=== PATIENT | female | born 1950 | race Caucasian/White ===

== ENCOUNTER 2023-05-25 15:58 | Outpatient (RCR) | payer OTHER, SELFPAY | END 2023-05-25 23:59 | disposition home or self-care (01) | LOC: RPT 15:58 | PROVIDERS: ATTENDING PHYSICIAN Specialist; PRIMARYCARE PHYSICIAN Hospitalist | DX: M17.11 Unilateral primary osteoarthritis, right knee (principal); R26.2 Difficulty in walking, not elsewhere classified; Z73.6 Limitation of activities due to disability; M25.561 Pain in right knee | CPT/HCPCS: 97110; 97140; 97162; 97530 ==

== ENCOUNTER 2023-06-13 16:16 | Outpatient (RCR) | payer OTHER, SELFPAY | END 2023-06-14 07:57 | disposition home or self-care (01) | LOC: RPT 16:16 | PROVIDERS: ATTENDING PHYSICIAN Specialist; PRIMARYCARE PHYSICIAN Hospitalist | DX: M17.11 Unilateral primary osteoarthritis, right knee (principal); M25.561 Pain in right knee; R26.2 Difficulty in walking, not elsewhere classified | CPT/HCPCS: 97110; 97116; 97530 ==

== ENCOUNTER 2023-08-25 17:51 | Observation (INO) | payer OTHER, SELFPAY ==
[2023-08-25] VITALS (8 sets, daily range): BP systolic 117–180; BP diastolic 66–131; BMI 22.4; BMI 22.0
--- NOTE | 2023-08-25 16:10 | ED.GENMED ---
History of Present Illness
General
Chief Complaint: Visual Problem
Source: patient
Exam Limitations: none
Time Seen by Provider: 08/25/23 15:59
Nursing documentation reviewed up to this point in time: agreed with
Travel History
Have you had any contact with someone who has COVID-19?: No
Do you have any symptoms of coronavirus? Fever > 100 degrees, chills, cough, shortness of breath, sore throat, loss of taste or smell, muscle aches, or headache?: No
History of Present Illness
History of Present Illness:
73-year-old female with past medical history of GERD, hypertension who presents to the emergency department sent from ophthalmology due to diplopia; apparently found to have a 6th cranial nerve palsy. Patient reports that yesterday evening she had
an episode of double vision that lasted for short period of time and ultimately resolved and when she woke up this morning she was normal. She says that she was doing her errands this morning at around 12:30 PM she had blurry vision return and it
was more severe to the point that she felt uncomfortable driving. She says this has been persistent since then. She went to see Dr. Holguin in the office for evaluation and there was found to have a 6th cranial nerve palsy on examination. She was
sent over to the emergency room for evaluation of possible stroke. Aside from she she denies any other symptoms that she denies any speech issues, weakness or numbness in her extremities, dizziness. She denies any headache. She denies similar
symptoms in the past. She is not on blood thinners.
Past History
Past History
ED Past Medical History: Cancer and GERD
ED Past Surgical History: Gynecological
Social History
Personal:
Living: with family
Employment: Employed
Review of Systems
Review of Systems
All Other Systems: ROS reviewed and negative except as documented in HPI and ROS
Constitutional: Denies fever or chills
EENT: Reports other (Blurry vision/double vision)
Respiratory: Denies cough or trouble breathing
Cardiac: Denies chest pain or palpitations
ABD/GI: Denies abdominal pain, nausea or vomiting
: Denies flank pain
Musculoskeletal: Denies neck pain or back pain
Neurological: Denies dizzy, headache, weakness or numbness
Phy Exam
Physical Exam
Physical Exam:
General: Awake, alert, oriented x3; no acute distress
Head: Normocephalic, atraumatic
Eyes: Conjunctiva normal
Throat: Airway intact, handling secretions
Neck: Trachea midline, supple without meningismus
Lungs: Breathing comfortably no distress
Heart: Regular rate and rhythm, no murmurs, gallops, or rubs
Neuro: 6th cranial nerve palsy on the right; cranial nerves otherwise intact; no limb ataxia; motor and sensory function intact and symmetric upper and lower extremities; no limb ataxia; speech is fluent with no dysarthria or aphasia
Skin: no rash
Extremities: No edema in extremities, equal pulses in all extremities
Scores
NIH Stroke Score
Level of Consciousness: 0 - Alert
LOC Questions: 0-Answers both correctly
LOC Commands: 0-Performs both correctly
Best Horizontal Gaze: 1-Partial gaze palsy
Visual Sheikh: 0=Normal, no visual loss
Facial Palsy: 0=Normal, symmetrical
Motor - Right Arm: 0=No drift 10 seconds
Motor - Left Arm: 0=No drift 10 seconds
Motor - Right Le-No drift 5 seconds
Motor - Left Le-No drift 5 seconds
Limb Ataxia: 0-Absent
Sensation: 0-Normal
Best Language: 0-No aphasia
Dysarthria: 0-Normal
Extinction and Inattention: 0-No abnormality
Total Score:: 1
Heart Failure Risk
Heart Failure Risk Score: Not Applicable
Heart Score for Chest Pain Patients
STEMI patient?: Not applicable
Withdrawal Assessment of Alcohol
Withdrawal Assessment Completed?: Not applicable
Course
Orders/Labs/Results
Orders:
Orders
08/25/23 15:45
CBC/With Diff [Complete Blood Count/With Diff] Urgent
Comprehensive Metabolic Panel Urgent
08/25/23 16:02
Electrocardiogram (*1) Urgent
Reason for Study: Chest Pain
EKG- Treatment ONCE
08/25/23 16:05
CT Head & Neck Angio W/wo IV Urgent
Comment:
Reason For Exam: 6th nerve palsy; double vision
CT Head W/o Iv Contrast Urgent
Comment:
Reason For Exam: 6th nerve palsy; double vision
08/25/23 16:07
NEUROLOGY CONSULT Urgent
Consulting Provider: Kate Godinez
Was physician already notified: Yes
Reason for consult: CVA alert
08/25/23 16:29
PTT Urgent
Prothrombin Time Urgent
08/25/23 16:53
Aspirin Chewable [Low Strength Aspirin] 81 mg PO NOW STA
Lorazepam [Ativan] 0.5 mg PO NOW STA
Abnormal Lab Results
08/25/23
15:45
MPV 10.6 H fL
(7.4-10.4)
BUN 29 H mg/dl
(7-17)
Glucose 122 H mg/dl
(70-99)
08/25/23 15:45
08/25/23 15:45
Vital Signs
Initial and Last Documented VS:
Initial Vital Signs
Temp Pulse Resp BP Pulse Ox
36.7 C 56 20 174/86 98
08/25/23 15:32 08/25/23 15:32 08/25/23 15:32 08/25/23 15:32 08/25/23 15:32
Last Documented Vital Signs
Temp Pulse Resp BP Pulse Ox
36.7 C 51 18 180/96 96
08/25/23 15:32 08/25/23 16:30 08/25/23 16:30 08/25/23 16:30 08/25/23 16:30
MDM/Problems Addressed
Differential Diagnosis Includes:
CVA, mass, aneurysm, peripheral nerve palsy
MDM/Problems Addressed:
73-year-old female presents for evaluation of double vision�had an episode last night that resolved by the time she woke up this morning; symptoms returned again around 12:30 PM and has been constant since then. She was seen by plastic press molder
found to have a right 6th cranial nerve palsy and was referred to the emergency room. Stroke alert called on arrival. She is hypertensive but has otherwise normal vitals. Physical exam as above. NIH stroke scale 1. Plan to send for CT of the
head, CTA head and neck; usual labs sent off. Case discussed with neurology.
CT head negative. Per discussion with neurology patient not a tPA candidate given intermittent symptoms and low NIH stroke scale. Per neurology lower suspicion for stroke but plan for admission for MRI to rule this out as well as to evaluate for
any mass. Reviewed labs CBC and CMP unremarkable. Patient very anxious will treat with some Ativan. Per neurology will give low-dose aspirin. Discussed with hospitalist for admission.
Chronic conditions affecting care:
Hypertension�higher risk for stroke
Acute Exacerbation and/or Progression of Chronic Illness:
Acutely hypertensive�permissive hypertension in the setting of possible stroke
Acute Exacerbation and/or Progression of Chronic Illness: HTN
*Radiology
Radiology exam reviewed: radiology read reviewed
*Pulse Oximetry
Patient hypoxic: no
*EKG
Interpreted by ED Provider?: Yes
Heart Rate: 52
Rate: bradycardiac
Rhythm: sinus
[place]: normal axis
Interval: normal interval
QRS Pattern: normal QRS
Ischemia: other (Septal infarct age undetermined)
*Critical Care Note
Total Time (30-74mins, 75-104mins- exclusive of procedures): 30
comment:
Critical care statement: A total of 30 minutes of critical care time was provided for this patient. This includes management of unstable vital signs, evaluation of the patient at bedside, frequent reassessment, discussion with
consultants/hospitalist, and review of pertinent medical records. This time was separate from time utilized to perform any aforementioned documented procedures
Data Reviewed
Source: patient, records and physician (Reviewed notes from ophthalmology)
Patient Management
Discussion with other providers: Web Marketing Strategist (Discussed with neurology)
ED Attending Note
-
Portions of this chart may have been created with voice recognition software.� Occasional wrong word or��sound alike� substitutions may have occurred due to the inherent limitations of voice recognition software.
Discharge Plan
Departure
Patient Disposition: Admit
Date of Disposition: 08/25/23
Time of Disposition: 16:54
Admit to doctor: Elizabeth
Presentation/result/management discussed w/ accepting MD/DO: Hospitalist
Discharge Problem:
Abducens (sixth) nerve palsy
Prescriptions:
No Action
multivitamin Tablet
1 tab PO DAILY Qty: 0
citalopram [Celexa] 20 mg Tablet
20 mg PO DAILY Qty: 0
dexlansoprazole [Dexilant] 30 mg Capsule,Biphase Delayed Releas
30 mg PO DAILY Qty: 0
zinc acetate 50 mg (zinc) Capsule
50 mg PO DAILY Qty: 0
cyanocobalamin (vitamin B-12) [Vitamin B-12] 1,000 mcg Tablet
1,000 mcg PO DAILY Qty: 0
calcium carbonate [Calcium 500] 500 mg calcium (1,250 mg) Tablet
500 mg PO DAILY Qty: 0
magnesium 200 mg Tablet
200 mg PO DAILY Qty: 0
losartan 50 mg tablet
50 mg PO DAILY
buspirone 5 mg tablet
5 mg PO DAILY
atorvastatin 10 mg tablet
10 mg PO DAILY
Referrals:
Kaleigh Posadas MD [Family Provider] -
Interventions
Interventions:
*Risk Screen - Suicide Last Done: 08/25/23 15:48
*General Assessment Last Done: 08/25/23 15:48
*Neglect/Abuse Screening Last Done: 08/25/23 15:48
*ED COVID-19 Vaccine History Last Done: 08/25/23 15:48
ED- Neurological Assessment Last Done: 08/25/23 16:04
ED-EENT Assessment Last Done: 08/25/23 15:50
[2023-08-25 16:18] LABS: % Eosinophils 4.1 % (0-6); % Immature Granulocytes 0.1 % (0-0.5); % Lymphocytes 31.2 % (20.5-51.1); % Monocytes 4.8 % (1.7-9.3); % Neutrophils 58.8 % (42.2-75.2); Absolute Basophils 0.1 10^3/uL (0-0.2); Absolute Eosinophils 0.3 10^3/uL (0-0.7); Absolute Lymphocytes 2.1 10^3/uL (1.2-3.4); Absolute Monocytes 0.3 10^3/uL (0.1-0.6); Hematocrit 38.7 % (37.0-47.0); Hemoglobin 13.1 g/dL (12.0-16.0); Mean Corp Hgb Conc. 33.9 g/dL (33.0-37.0); Mean Corpuscular Hgb 28.3 pg (27.0-31.0); Mean Corpuscular Volume 83.6 fL (81.0-99.0); Mean Platelet Volume 10.6 fL (7.4-10.4); Nucleated Red Blood Cells % 0 %; Platelet Count 301 10^3/uL (130-400); Red Blood Cell Count 4.63 10^6/uL (4.20-5.40); White Blood Cell Count 6.9 10^3/uL (4.8-10.8)
[2023-08-25 16:31] LABS: ALT (SGPT) 26 U/L (0-35); AST (SGOT) 35 U/L (14-36); Albumin 4.7 g/dl (3.5-5.0); Alkaline Phosphatase 96 U/L (38-126); Blood Urea Nitrogen 29 mg/dl (7-17); Calcium 9.9 mg/dl (8.4-10.2); Carbon Dioxide 29 mmol/L (22-30); Chloride 103 mmol/L (98-107); Estimated Creatinine Clearance 48 ml/min; Glucose 122 mg/dl (70-99); Potassium 4.3 mmol/L (3.5-5.1); Sodium 138 mmol/L (135-145); Total Bilirubin 0.6 mg/dl (0.2-1.3); Total Protein 7.6 g/dl (6.3-8.2); eGFR > 60.00
[2023-08-25 16:49] LABS: INR 1.09; PT 13.9 Sec (11.4-14.6)
[2023-08-25 16:50] LABS: APTT 30.6 Sec (23.4-35.0)
--- NOTE | 2023-08-25 17:00 | HPS.HSE ---
Family Physician
-
Family Physician: Kaleigh Posadas MD
Chief Complaint
-
double vision
History of Present Illness
Ms. Esther Syed is a 73 yo woman with hx GERD, HTN who presents to the ER from ophthalmology for diplopia found to have a 6th cranial nerve palsy. She had double vision yesterday evening that resolved then returned this afternoon . She saw
Alicia in clinic who diagnosed a cranial 6th nerve palsy and sent her to the ER for further evaluation.
Patient denies headache. No recent fevers/chills. No weakness in arms or legs. No numbness or tingling. No abdominal pain. No nausea/vomiting. She did not take her BP medications this morning.
Medical History
Past Medical History
Past Medical History: Reports Other (GERD, HTN)
Past Surgical History: Reports Gynocological
Social History
Tobacco: Non-smoker
Personal:
Family History
Family History: Not pertinent
Allergies / Home Medications
Allergies reflects when Allergies were last updated in [employer].
Home Medications with original date entered in [employer]
Allergy/Medication List:
Allergies
Allergy/AdvReac Type Severity Reaction Status Date / Time
No Known Allergies Allergy Verified 08/25/23 15:42
Home Medications
citalopram 20 mg tablet (Celexa) 20 mg PO DAILY ##0 11/28/10
dexlansoprazole 30 mg capsule,biphase delayed release (Dexilant) 30 mg PO DAILY ##0 11/28/10
multivitamin 1 tab PO DAILY ##0 11/28/10
calcium carbonate 500 mg calcium (1,250 mg) tablet 500 mg PO DAILY ##0 09/17/13
cyanocobalamin (vitamin B-12) 1,000 mcg tablet (Vitamin B-12) 1,000 mcg PO DAILY ##0 09/17/13
magnesium 200 mg tablet 200 mg PO DAILY ##0 09/17/13
zinc acetate 50 mg (zinc) capsule 50 mg PO DAILY ##0 09/17/13
atorvastatin 10 mg tablet 10 mg PO DAILY 08/25/23
buspirone 5 mg tablet 5 mg PO DAILY 08/25/23
losartan 50 mg tablet 50 mg PO DAILY 08/25/23
Review of Systems
-
History Source: Patient
A 12 point ROS was completed and negative except as noted: Yes
Physical Exam
Vital Signs
Vital Signs
Temp Pulse Resp BP Pulse Ox
98.0 F 51 18 180/96 96
08/25/23 15:32 08/25/23 16:30 08/25/23 16:30 08/25/23 16:30 08/25/23 16:30
Physical Exam
General: No Apparent Distress
HEENT: PERRLA
Respiratory: Clear; No Wheezes
Cardiac: S1/S2 and Regular Rhythm
GI: Soft and Non Tender
Skin: Warm and Dry; No Rash
Neuro: AO x 3 and Other (pupils dilated; 6th CN palsy on right)
Psych: Calm
Laboratory Results
-
08/25/23 15:45
08/25/23 15:45
Laboratory Results
PT 13.9 Sec (11.4-14.6) 08/25/23 16:29
INR 1.09 08/25/23 16:29
APTT 30.6 Sec (23.4-35.0) 08/25/23 16:29
Total Bilirubin 0.6 mg/dl (0.2-1.3) 08/25/23 15:45
AST 35 U/L (14-36) 08/25/23 15:45
ALT 26 U/L (0-35) 08/25/23 15:45
Alkaline Phosphatase 96 U/L (38-126) 08/25/23 15:45
Data Reviewed
-
Diagnostic Radiology: Report Reviewed by me
Lab Data: Labs Reviewed by me
Impression/Plan
-
Ms. Esther Syed is a 73 yo woman with hx GERD, HTN who presents to the ER from ophthalmology for diplopia found to have a 6th cranial nerve palsy. She had double vision yesterday evening that resolved then returned this afternoon . She saw .
Alicia in clinic who diagnosed a cranial 6th nerve palsy and sent her to the ER for further evaluation.
Triage VS: T 36.7, P 56, RR 20, BP 174/86, SpO2 98%
LABS: WBC 6.9, Hg 13.1, PLT 301, Na 138, K+ 4.3, Cl 103, BUN 29, Cr 0.8, Glucose [address]
IMPRESSION:
No evidence of acute intracranial abnormality.
HEAD CTA
IMPRESSION: No significant narrowing of the carotid bulbs or proximal internal carotid arteries bilaterally.
There is no evidence for intracranial large vessel occlusion or significant stenosis.
Slightly larger caliber of the left vertebral artery when compared to the right. There is no evidence for significant narrowing or dissection involving the vertebral basilar system.
No CT angiographic evidence for intracranial aneurysm.
MAR: aspirin and ativan
Diplopia
6th Nerve Palsy
-admit to observation, telemetry
-aspirin given in ER, continue daily
-CT/CTA results above
-appreciate neuro consult
-MRI ordered
-PT/OT
-swallow eval
GERD
-SECURITY DIRECTOR PPI
HTN
-did not take losartan today - give now - continue daily
Anxiety
-SECURITY DIRECTOR Buspirone
-ativan pre-MRI
DVT PPx SCD
FULL CODE
[2023-08-25] MEDS: LOW STRENGTH ASPIRIN 81 MG PO (17:21)
[2023-08-25] MEDS: ATIVAN 0.5 MG PO (17:21)
--- NOTE | 2023-08-25 17:36 | CON.NEURO ---
Consultation
Order
Date of Consultation: 08/25/23
Reason for Consult: stroke alert
Called in 16:48
CC: double vision
HPI: This is a 73-year-old woman who presented to [facility] on August 25, 2023 with diplopia. According to the patient she developed intermittent painless binocular vertical diplopia worse with right lateral gaze that started on 08/23
2023 around 11 PM. No reports of head trauma, dysphagia, dysarthria, motor or sensory deficits
ER VS:174/86-180/96, 56, afebrile.
PDMP:Hydromorphone 2 Mg 20 tabs filled in on 07/27/2023, 07/21/2023, Clonazepam 0.5 mg 60 tabs filled in on 04/24/2023 , 10/25/2022
Labs:gluc 122, normal Na,
CTA head-no aneurysm
CT head-no acute abnormalities.
EKG: sinus bradycardia, �QTc Int : 453 ms.
PMH: Breast cancer, HTN, DLP, ALFONZO, OA, GERD
PSH: bilateral cataract surgery, left lumpectomy, left elbow replacement, RCR repair,
SH: ; former smoker
FH: Colon cancer
All: Sulfa, atenolol,
ROS:
Constitutional: Negative. Negative for chills, fever and unexpected weight change.
HENT: Negative for ear pain, hearing loss, tinnitus and trouble swallowing.
Eyes: Positive for diplopia
Respiratory: Negative for cough, choking and shortness of breath.
Cardiovascular: Negative for chest pain, palpitations and leg swelling.
Gastrointestinal: Negative for abdominal pain and vomiting.
Endocrine: Negative. Negative for cold intolerance.
Genitourinary: Negative for dysuria, flank pain and urgency.
Musculoskeletal: Negative for back pain, gait problem, neck pain and neck stiffness.
Skin: Negative for rash.
Allergic/Immunologic: Negative. Negative for immunocompromised state.
Neurological: Negative for dizziness, tremors, seizures, speech difficulty, numbness and headaches.
Psychiatric/Behavioral: Positive for anxiety
General: Well developed. In no acute distress.
Cardio: Regular rate and rhythm without murmur. Extremities are without cyanosis or edema.
Neuro:
Mental Status: Alert, oriented to person, place, and date. Normal attention and recall. Good fund of knowledge. Follows complex requests across the midline. Comprehension, naming, and repetition intact. Anxious
Cranial Nerves: OS/OD 5mm, nonreactive(s/p dilatation) EOMs full. Visual gaines full to confrontation. No ptosis. No nystagmus. V1-V3 intact to light touch and pinprick bilaterally, symmetric. Face symmetric. Normal hearing AU. The palate
elevated well. SCMs and traps 5/5. Tongue midline. No dysarthria.
Motor: Normal bulk and tone. No pronator or arm drift. Strength 5/5 throughout. No clonus.
Sensory: Normal pinprick, vibration and JPS.
Coordination: No dysmetria or tremor.
Gait: deferred
Assessment and Plan:
I. Acute R CN palsy. Likely etiology-microvascular infarct.
II. HTN
III. History of breast CA
-Strict BP control
-LDL, ua tox
-Brain MRI wo alfonzo
-ASA 81 mg QD
I personally reviewed all radiology and labs along with past medical records pertinent to current medical problems. Total time spent in patient care is 60 minutes.
Thank you for allowing us to participate in the care of this patient. We will continue to follow. Please do not hesitate to contact us with any questions or concerns.
Subjective/Objective
Subjective Data
Date of Service: August 25, 2023
Objective Data
Vital Signs
Temp Pulse Resp BP Pulse Ox
36.7 C 49 16 180/96 97
08/25/23 15:32 08/25/23 17:15 08/25/23 17:15 08/25/23 16:30 08/25/23 17:15
Lab Results
08/25/23 15:45
08/25/23 15:45
PT 13.9 Sec (11.4-14.6) 08/25/23 16:29
INR 1.09 08/25/23 16:29
APTT 30.6 Sec (23.4-35.0) 08/25/23 16:29
Sodium 138 mmol/L (135-145) 08/25/23 15:45
Potassium 4.3 mmol/L (3.5-5.1) 08/25/23 15:45
BUN 29 mg/dl (7-17) H 08/25/23 15:45
Glucose 122 mg/dl (70-99) H 08/25/23 15:45
Calcium 9.9 mg/dl (8.4-10.2) 08/25/23 15:45
Patient Allergies
No Known Allergies Allergy (Verified 08/25/23 15:42)
Medications
-
Home Medications
Medication Instructions Recorded
citalopram 20 mg tablet (Celexa) 20 mg PO DAILY ##0 11/28/10
dexlansoprazole 30 mg 30 mg PO DAILY ##0 11/28/10
capsule,biphase delayed release
(Dexilant)
multivitamin 1 tab PO DAILY ##0 11/28/10
calcium carbonate 500 mg calcium 500 mg PO DAILY ##0 09/17/13
(1,250 mg) tablet
cyanocobalamin (vitamin B-12) 1,000 mcg PO DAILY ##0 09/17/13
1,000 mcg tablet (Vitamin B-12)
magnesium 200 mg tablet 200 mg PO DAILY ##0 09/17/13
zinc acetate 50 mg (zinc) capsule 50 mg PO DAILY ##0 09/17/13
atorvastatin 10 mg tablet 10 mg PO DAILY 08/25/23
buspirone 5 mg tablet 5 mg PO DAILY 08/25/23
losartan 50 mg tablet 50 mg PO DAILY 08/25/23
Vital Signs and Labs
-
Vital Signs and Labs:
Vital Signs
Temp Pulse Resp BP Pulse Ox
36.7 C 49 19 176/86 96
08/25/23 15:32 08/25/23 17:31 08/25/23 17:31 08/25/23 17:31 08/25/23 17:31
Lab Results
08/25/23 15:45
08/25/23 15:45
PT 13.9 Sec (11.4-14.6) 08/25/23 16:29
INR 1.09 08/25/23 16:29
APTT 30.6 Sec (23.4-35.0) 08/25/23 16:29
Sodium 138 mmol/L (135-145) 08/25/23 15:45
Potassium 4.3 mmol/L (3.5-5.1) 08/25/23 15:45
BUN 29 mg/dl (7-17) H 08/25/23 15:45
Glucose 122 mg/dl (70-99) H 08/25/23 15:45
Calcium 9.9 mg/dl (8.4-10.2) 08/25/23 15:45
Home Medications
-
Home Medications
citalopram 20 mg tablet (Celexa) 20 mg PO DAILY ##0 11/28/10
dexlansoprazole 30 mg capsule,biphase delayed release (Dexilant) 30 mg PO DAILY ##0 11/28/10
multivitamin 1 tab PO DAILY ##0 11/28/10
calcium carbonate 500 mg calcium (1,250 mg) tablet 500 mg PO DAILY ##0 09/17/13
cyanocobalamin (vitamin B-12) 1,000 mcg tablet (Vitamin B-12) 1,000 mcg PO DAILY ##0 04/15/14
magnesium 200 mg tablet 200 mg PO DAILY ##0 09/17/13
zinc acetate 50 mg (zinc) capsule 50 mg PO DAILY ##0 09/17/13
atorvastatin 10 mg tablet 10 mg PO DAILY 08/25/23
buspirone 5 mg tablet 5 mg PO DAILY 08/25/23
losartan 50 mg tablet 50 mg PO DAILY 08/25/23
Medications
-
Medications:
Generic Name Dose Route Start Last Admin
Trade Name Freq PRN Reason Stop Dose Admin
Losartan Potassium 50 mg 08/25/23 18:00
Losartan 50 Mg Tablet PO 09/22/23 17:59
DAILY LALA
[2023-08-25] MEDS: COZAAR 50 MG PO (18:11)
[2023-08-25 19:08] LABS: Erythrocyte Sed Rate 2 mm/hour (0-20)
[2023-08-25 19:19] LABS: HDL Cholesterol 68 mg/dl; LDL Cholesterol, Calculated 46 mg/dl; Total Cholesterol 155 mg/dl (50-199); Triglyceride 205 mg/dl (10-149); Very Low Density Lipoprotein 41 mg/dl (0-30)
[2023-08-25 19:31] LABS: C-Reactive Protein < 5.00 mg/L (0.0-10.00)
[2023-08-25 20:00] LABS: TSH Reflex To Free T4 3.41 uIU/ml (0.47-4.68)
--- NOTE | 2023-08-25 20:00 | PTCARENOTE ---
Patient admitted from ED. Patient AAO x3, on RA, in no acute distress. Tele monitor applied. Patient oriented to room and call hernández is within reach.
[2023-08-25 20:39] LABS: Amphetamines Negative (Negative); Barbiturates Negative (Negative); Benzodiazepines Negative (Negative); Buprenorphine Negative (Negative); Cocaine Negative (Negative); Marijuana Negative (Negative); Methadone Negative (Negative); Methamphetamines Negative (Negative); Opiates Negative (Negative); Phencyclidine Negative (Negative); Tricyclic Antidepressants Negative (Negative)
[2023-08-25] MEDS: MELATONIN 3 MG PO (21:33)
[2023-08-26 03:00] VITALS: BP 112/60
[2023-08-26 07:00] VITALS: BP 140/75
[2023-08-26 07:30] LABS: Hematocrit 36.8 % (37.0-47.0); Hemoglobin 12.7 g/dL (12.0-16.0); Mean Corp Hgb Conc. 34.5 g/dL (33.0-37.0); Mean Corpuscular Hgb 28.9 pg (27.0-31.0); Mean Corpuscular Volume 83.8 fL (81.0-99.0); Mean Platelet Volume 10.5 fL (7.4-10.4); Platelet Count 295 10^3/uL (130-400); Red Blood Cell Count 4.39 10^6/uL (4.20-5.40); Red Cell Dist. Width 13.2 % (11.5-14.5); White Blood Cell Count 5.8 10^3/uL (4.8-10.8)
[2023-08-26] MEDS: CELEXA 20 MG PO (07:48)
[2023-08-26] MEDS: VITAMIN B-12 1000 MCG PO (07:48)
[2023-08-26] MEDS: LIPITOR 10 MG PO (07:49)
[2023-08-26] MEDS: LOW STRENGTH ASPIRIN 81 MG PO (07:49)
[2023-08-26] MEDS: PROTONIX 40 MG PO (07:49)
[2023-08-26] MEDS: COZAAR 50 MG PO (07:49)
[2023-08-26] MEDS: BUSPAR 5 MG PO (07:49)
[2023-08-26 08:10] LABS: Blood Urea Nitrogen 30 mg/dl (7-17); Calcium 9.6 mg/dl (8.4-10.2); Carbon Dioxide 30 mmol/L (22-30); Chloride 104 mmol/L (98-107); Estimated Creatinine Clearance 55 ml/min; Glucose 93 mg/dl (70-99); HDL Cholesterol 74 mg/dl; LDL Cholesterol, Calculated 69 mg/dl; Magnesium 2.3 mg/dl (1.6-2.3); Potassium 4.9 mmol/L (3.5-5.1); Sodium 138 mmol/L (135-145); Total Cholesterol 157 mg/dl (50-199); Triglyceride 73 mg/dl (10-149); Very Low Density Lipoprotein 14 mg/dl (0-30); eGFR > 60.00
[2023-08-26 08:43] LABS: Glycohemoglobin (HgbA1c) 5.9 % (4.0-5.6)
[2023-08-26] MEDS: ATIVAN 0.5 MG PO (09:07)
--- NOTE | 2023-08-26 09:18 | PTOTSP ---
ST Acute Care Evaluation
Pt presents with mild lingual deviation to the left upon protrusion, but oropharyngeal function that is within functional limits. Pt is safe for PO of all solids and liquids. No skilled DIGITAL ASSET SPECIALIST services warranted at this time.
Recommendations:
- Continue with regular solids, thin liquids, and meds as tolerated.
- DIGITAL ASSET SPECIALIST to sign off. Please re-consult if needed.
[2023-08-26 09:40] VITALS: BP 144/79; PULSE 54; O2SAT 97
[2023-08-26 09:41] VITALS: BP 144/79; PULSE 53; O2SAT 97
--- NOTE | 2023-08-26 09:52 | PTOTSP ---
Patient is functionally at her baseline even presenting with diplopia. She is I with bed mobility, transfer, ambulation, gait, and stairs. dynamic balance is good. Spent time educating patient on safety techniques of scanning environment and
slowing pace down to ensure safety while diplopia is present. At this time, there is no skilled PT needs to address. Please reconsult if situation changes. Will sign off
--- NOTE | 2023-08-26 10:53 | CM ---
Addendum entered by Haven Pathak 08/26/23 12:35:
IMM completed.
Home no needs.
Original Note:
Patient seen bedside.
IA completed.
patient lives with spouse in a 2 story home/.
Independent prior to admission.
Patient does drive.
Patient has not used assistive devices.
no hx VN.
PCP: Dr Kaleigh Posadas from [place]
Pharmacy: [facility]
[2023-08-26 11:00] VITALS: BP 147/78
--- NOTE | 2023-08-26 12:10 | W.PN.HOSP.TC ---
Today's Communication/Plan
-
F/U ESR. CRP and likely DC home today on daily asa 81
Assessment / Plan
Assessment / Plan
Ms. Esther Syed is a 73 yo woman with hx GERD, HTN who presents to the ER from ophthalmology for diplopia found to have a 6th cranial nerve palsy.� She had double vision yesterday evening that resolved then returned this afternoon . She saw
Alicia in clinic who diagnosed a cranial 6th nerve palsy and sent her to the ER for further evaluation.
HEAD CTA
IMPRESSION: No significant narrowing of the carotid bulbs or proximal internal carotid arteries bilaterally.
There is no evidence for intracranial large vessel occlusion or significant stenosis.
Slightly larger caliber of the left vertebral artery when compared to the right. There is no evidence for significant narrowing or dissection involving the vertebral basilar system.
No CT angiographic evidence for intracranial aneurysm.
MAR: aspirin and ativan
Diplopia
6th Nerve Palsy
-admitted to observation, telemetry
-aspirin given in ER, continue daily
-CT/CTA results above
-MRI results above; no acute infarct
-add on ESR/CRP
-likely OK for DC on daily aspirin; will await ESR/CRP
GERD
-TELETYPE INSTALLER PPI
HTN
-increase home losartan to 75mg daily
Anxiety
-TELETYPE INSTALLER Buspirone
-ativan pre-MRI
DVT PPx SCD
FULL CODE
Anticipated Discharge: Within 24 hours
Subjective/Interval History
-
Date of Service: August 26, 2023
possibly some improvement in double vision
no headache
no new weakness
has eye patch
Objective Data
-
Labs:
Laboratory Results
08/26/23
07:08
WBC 5.8
Hgb 12.7
Hct 36.8 L
Plt Count 295
Sodium 138
Potassium 4.9
Chloride 104
Carbon Dioxide 30
BUN 30 H
Creatinine 0.7
Glucose 93
Calcium 9.6
Vital Signs:
Vital Signs
Temp Pulse Resp BP Pulse Ox
97.7 F 50 12 147/78 95
08/26/23 11:00 08/26/23 11:00 08/26/23 11:00 08/26/23 11:00 08/26/23 11:00
Review of Systems
-
History Source: Patient
All other systems: Reviewed and negative
Physical Exam
-
General: Appears in Distress
HEENT: PERRLA and Other
Respiratory: Clear to Auscultation; Negative Wheezes
Cardiac: Regular Rhythm and S1/S2
GI: Soft and Nontender
Musculoskeletal: No Edema
Skin: Warm and Dry; Negative Rash
Neuro: AO x 3
Psych: Calm
Data Reviewed
-
Diagnostic Radiology: Report Reviewed by me
Labs: Labs Reviewed by me
--- NOTE | 2023-08-26 12:20 | W.DS.TRANS ---
DC Summary - Emergency Medicine Nurse Practitioner
-
Discharge Instructions:
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
Diet Regular
Activity As tolerated
Driving Restrictions Not until seen by your Dr
Bathing Restrictions None
Instructions:
Stand-Alone Forms:
Changes to Home Medications: Yes
Discharge Medications:
DC Medications w/original date entered in [facility]
citalopram 20 mg tablet (Celexa) 20 mg PO DAILY Mental Health/Anxiety ##0 11/28/10
dexlansoprazole 30 mg capsule,biphase delayed release (Dexilant) 30 mg PO DAILY Gastrointestinal Issue ##0 11/28/10
multivitamin 1 tab PO DAILY Supplement ##0 11/28/10
calcium carbonate 500 mg calcium (1,250 mg) tablet 500 mg PO DAILY Supplement ##0 09/17/13
cyanocobalamin (vitamin B-12) 1,000 mcg tablet (Vitamin B-12) 1,000 mcg PO DAILY Supplement ##0 09/17/13
magnesium 200 mg tablet 200 mg PO DAILY Supplement ##0 09/17/13
zinc acetate 50 mg (zinc) capsule 50 mg PO DAILY Supplement ##0 09/17/13
atorvastatin 10 mg tablet 10 mg PO DAILY High Cholesterol 08/25/23
buspirone 5 mg tablet 5 mg PO DAILY Mental Health/Anxiety 08/25/23
aspirin 81 mg chewable tablet (Children's Aspirin) 81 mg PO DAILY #30 tabs 08/26/23
losartan 50 mg tablet 75 mg PO DAILY #45 tabs 08/26/23
Home Medication Changes
Your Losartan is increased from 50mg daily to 75mg daily.
You are started on aspirin 81mg daily.
Pending Results: No
[2023-08-26 12:57] LABS: C-Reactive Protein < 5.00 mg/L (0.0-10.00)
[2023-08-26 13:05] LABS: Erythrocyte Sed Rate 8 mm/hour (0-20)
--- NOTE | 2023-08-26 14:31 | W.DCSUMMARY ---
Discharge Summary
Discharge Data
Date of Admission: 08/25/23
Date of Discharge: 08/26/23
-
Pending Results: No
Hospital Course
Discharging Physician : Dr. Tess Goodman
Disposition : Home
Primary care physician : Dr. Kaleigh Posadas
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
Hospital Course :
Ms. Esther Syed is a 73 yo woman with hx GERD, HTN who presents to the ER from ophthalmology for diplopia found to have a 6th cranial nerve palsy.� She had double vision evening prior to admission that returned following day prompting ophthalmology
visit.�Triage vitals significant for hypertension. Labs stable. CT head without acute abnormality. CTA without significant stenosis. She was started on aspirin and admitted to medicine with neurology consulting.
MRI the following morning without acute event. ESR and CRP were within normal limits. Likely microvascular etiology and she is told to continue aspirin on discharge. She will follow up with Dr. Holguin this week. She is told she can use an eye
patch for comfort and should not drive until vision normalizes; to be determined by outpatient physicians.
Time spent on discharge was 31 minutes.
Important imaging findings :
HEAD CT
IMPRESSION:
No evidence of acute intracranial abnormality.
HEAD CTA
IMPRESSION: No significant narrowing of the carotid bulbs or proximal internal carotid arteries bilaterally.
There is no evidence for intracranial large vessel occlusion or significant stenosis.
Slightly larger caliber of the left vertebral artery when compared to the right. There is no evidence for significant narrowing or dissection involving the vertebral basilar system.
No CT angiographic evidence for intracranial aneurysm.
BRAIN MRI
IMPRESSION:
There is no acute intracranial process.
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
Age-appropriate changes.
Minimal chronic sinus disease.
Procedure findings :
Discharge Plan
-
Patient Disposition: Home (Routine Discharge)
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
Diet: Regular
Activity: As tolerated
Driving Restrictions: Not until seen by your Dr
Bathing Restrictions: None
Referrals:
Kaleigh Posadas MD [Family Provider] - in less than 1 week
Ladarius Holguin MD [Active] - in less than 1 week
Additional Discharge Medication Instructions: Your Losartan is increased from 50mg daily to 75mg daily.
You are started on aspirin 81mg daily.
Please follow up with Dr. Holguin next week. Do not drive until vision improves. Wear eye patch for comfort.
Prescriptions:
New
losartan 50 mg Tablet
75 mg PO DAILY Qty: 45 0RF
aspirin [Children's Aspirin] 81 mg Tablet,Chewable
81 mg PO DAILY Qty: 30 0RF
Continued
multivitamin Tablet
1 tab PO DAILY Qty: 0
citalopram [Celexa] 20 mg Tablet
20 mg PO DAILY Qty: 0
dexlansoprazole [Dexilant] 30 mg Capsule,Biphase Delayed Releas
30 mg PO DAILY Qty: 0
zinc acetate 50 mg (zinc) Capsule
50 mg PO DAILY Qty: 0
cyanocobalamin (vitamin B-12) [Vitamin B-12] 1,000 mcg Tablet
1,000 mcg PO DAILY Qty: 0
calcium carbonate 500 mg calcium (1,250 mg) Tablet
500 mg PO DAILY Qty: 0
magnesium 200 mg Tablet
200 mg PO DAILY Qty: 0
buspirone 5 mg tablet
5 mg PO DAILY
atorvastatin 10 mg tablet
10 mg PO DAILY
Discontinued
losartan 50 mg tablet
50 mg PO DAILY
Discharge Orders:
Discharge Patient (As Directed); Ordered 08/26/23
Ordered By: Tess Goodman
Discharge Date and Time
Discharge Date/Time: 08/26/23 12:51
== END 2023-08-26 12:51 | disposition home or self-care (01) ==
LOC: 4 WEST ACU 17:51
PROVIDERS: ADMITTING PHYSICIAN Student in an Organized Health Care Education/Training Program; CONSULT PHYSICIAN Psychiatry & Neurology Neurology; EMERGENCY PHYSICIAN Emergency Medicine; FAMILY PHYSICIAN Hospitalist
DX: H49.21 Sixth [abducent] nerve palsy, right eye (principal); H53.2 Diplopia; K21.9 Gastro-esophageal reflux disease without esophagitis; I10 Essential (primary) hypertension; F41.1 Generalized anxiety disorder; Z87.891 Personal history of nicotine dependence; Z80.0 Family history of malignant neoplasm of digestive organs; Z88.2 Allergy status to sulfonamides; Z85.3 Personal history of malignant neoplasm of breast
CPT/HCPCS: 70450; 70496; 70498; 70551; 80048; 80053; 80061; 80306; 83036; 83735; 84443; 85025; 85027; 85610; 85652; 85730; 86140; 92610; 93005; 97116; 97161; 97165; 99291; G0378; Q9967

== ENCOUNTER 2025-01-20 06:30 | Day surgery (SDC) | payer OTHER, SELFPAY | END 2025-01-20 13:27 | disposition home or self-care (01) | LOC: GI 06:30 | PROVIDERS: ATTENDING PHYSICIAN Specialist | DX: Z12.11 Encounter for screening for malignant neoplasm of colon (principal); D12.2 Benign neoplasm of ascending colon; K57.30 Diverticulosis of large intestine without perforation or abscess without bleeding; K64.8 Other hemorrhoids; Z80.0 Family history of malignant neoplasm of digestive organs | CPT/HCPCS: 45385; 88305 ==